=== PATIENT | male | born 1950 | race Caucasian/White ===

== ENCOUNTER 2017-10-05 06:02 | Day surgery (SDC) | payer MEDICARE, BC ==
[2017-10-05] MEDS ORDERED: Dextrose 5%-Lactated Ringers 1,000 ML IV SCH (06:30)
[2017-10-05] MEDS ORDERED: Propofol 200 MG/20 ML SDV ONE (07:08)
[2017-10-05] MEDS ORDERED: fentaNYL 100 MCG/2 ML SDV ONE (07:08)
[2017-10-05] MEDS ORDERED: Midazolam 1 MG/ML 2 ML SDV ONE (07:08)
[2017-10-05 10:20] VITALS: BP 98/46
--- NOTE | 2017-10-06 16:50 | OR ---
DATE OF PROCEDURE: 10/05/2017 PREOPERATIVE DIAGNOSIS: History of colonic polyps. POSTOPERATIVE DIAGNOSIS: Single recurrent polyp in the sigmoid colon (40 cm from the dentate line). OPERATIVE PROCEDURE: Flexible colonoscopy with polypectomy by snare technique. ANESTHESIA: IV sedation. INDICATION FOR PROCEDURE: This is a 67-year-old presenting following previous colonoscopy and polypectomies for adenomatous polyps. The plan is to proceed with flexible colonoscopy with biopsies and/or polypectomy as indicated. Potential risks including bleeding and perforation were discussed, and the patient wishes to proceed. DESCRIPTION OF PROCEDURE: The patient was taken to the operating room and placed in the left lateral decubitus position. IV sedation was administered. Initial digital rectal exam was performed and it was unremarkable. Colonoscope was then passed into the rectum with retroflexion revealing uncomplicated hemorrhoidal columns. The scope was eventually passed to level of the cecum. The prep was generally quite good. The patient had relatively short functioning of the small bowel, so the areas with fair bit of liquid green stool, most of this could be evacuated, but this certainly would impair visualization of small areas of the mucosal surface. The only abnormality seen on today's exam was a single polyp which appeared to be consistent with an adenomatous polyp at 40 cm from the dentate line. This was roughly a centimeter in size and was excised by means of cautery snare technique. The entire polyp appeared to be removed from the base of the polypectomy, had no bleeding after the polypectomy had been completed. The polyp was then placed into a retrieval bag, the scope was then withdrawn, and the procedure concluded. There were no evident complications and the patient was taken to the recovery room in satisfactory condition. Recommendation in this case would be to repeat the colonoscopy in 2 years, given the polypectomy identified today. Cleve Osullivan MD /[id number]
== END 2017-10-05 09:20 | disposition home or self-care (01) ==
LOC: JP.SDS 06:02
PROVIDERS: ATTEND Surgery
DX: Z12.11 Encounter for screening for malignant neoplasm of colon (principal); D12.6 Benign neoplasm of colon, unspecified; E11.22 Type 2 diabetes mellitus with diabetic chronic kidney disease; I12.9 Hypertensive chronic kidney disease with stage 1 through stage 4 chronic kidney disease, or unspecified chronic kidney disease; N18.9 Chronic kidney disease, unspecified; Z86.010 Personal history of colon polyps; Z88.0 Allergy status to penicillin; Z88.2 Allergy status to sulfonamides; Z88.8 Allergy status to other drugs, medicaments and biological substances
CPT/HCPCS: 45385; 88305; J2250; J2704; J3010; J7042

== ENCOUNTER 2018-03-21 07:40 | Day surgery (SDC) | payer MEDICARE, BC ==
[2018-03-21] MEDS ORDERED: Lactated Ringers 1,000 ML IV SCH (08:30)
[2018-03-21] MEDS ORDERED: Cyanocobalamin (Vitamin B12) 1,000 MCG/ML SDV IM SCH (08:30)
[2018-03-21] MEDS ORDERED: Glycopyrrolate 0.2 MG/ML 2 ML SDV IVPUSH ONE (09:00)
[2018-03-21] MEDS ORDERED: fentaNYL 100 MCG/2 ML SDV ONE (09:25)
[2018-03-21] MEDS ORDERED: Propofol 200 MG/20 ML SDV ONE (09:25)
[2018-03-21] MEDS ORDERED: MVI, Adult with Vitamin K 10 ML, Thiamine 200 MG, Chromium/Copper/Mang/Selen/Zn 1 ML in... IV ONE ×4 (09:45)
[2018-03-21 11:39] VITALS: BP 104/55
--- NOTE | 2018-03-30 12:12 | OR ---
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 POSTOPERATIVE DIAGNOSIS: Normal upper GI endoscopic examination status post Fatou-en-Y gastric bypass. OPERATIVE PROCEDURES: Upper GI endoscopy with gastric pouch biopsies for CLOtest. ANESTHESIA: IV sedation. INDICATION FOR PROCEDURE: A 67-year-old who recently experienced quite a bit in the way of weight loss and was noted recently to have marked hyperkalemia. This has been replaced, and he is now actually feeling quite a bit better and improving his oral intake substantially. A CT scan, however, was obtained, which suggested possible gastrogastric fistula. The patient is to undergo an upper GI endoscopy for evaluation of that possibility. Potential risks of the procedure including bleeding and perforation were discussed, and the patient wishes to proceed. DESCRIPTION OF PROCEDURE: The patient was taken to the operative room and placed in a left lateral decubitus position. IV sedation was administered, after which the upper GI endoscope was passed orally through the length of the esophagus and into the gastric pouch, and from there through the gastrojejunostomy, roughly 20 cm into the Fatou limb. Overall, the findings were entirely normal. There were no areas of significant inflammation or stricturing along the course of the gastric bypass anatomy and careful examination of the gastric pouch in the area around the gastrojejunostomy proximal to Fatou limb showed no evidence of fistula formation. The scope was then withdrawn into the pouch and biopsy obtained from there for H. pylori to establish the patient's H. pylori status. Minimal bleeding from the biopsy site was seen, and the procedure then concluded. At this point, the patient appears to be eating quite a bit better, and he will be set up to see Rosana Fam next weekend for followup to confirm that things are continuing to improve and recheck on electrolytes at that time. Cleve Osullivan MD /[id number]
== END 2018-03-21 11:18 | disposition home or self-care (01) ==
LOC: JP.SDS 07:40
PROVIDERS: ATTEND Surgery
DX: R93.5 Abnormal findings on diagnostic imaging of other abdominal regions, including retroperitoneum (principal); E11.22 Type 2 diabetes mellitus with diabetic chronic kidney disease; I12.9 Hypertensive chronic kidney disease with stage 1 through stage 4 chronic kidney disease, or unspecified chronic kidney disease; N18.9 Chronic kidney disease, unspecified; E03.9 Hypothyroidism, unspecified; Z98.84 Bariatric surgery status
CPT/HCPCS: 36415; 43239; 80048; 83735; 84100; 85610; 87081; J2704; J3010; J7120; J3490

== ENCOUNTER 2019-10-10 08:04 | Day surgery (SDC) | payer MEDICARE, BC ==
[~2019-10-10 08:04] MED LIST: Midazolam 1 MG/ML 2 ML SDV ONE; Propofol 200 MG/20 ML SDV ONE; fentaNYL 100 MCG/2 ML SDV ONE
[2019-10-10] MEDS ORDERED: Sodium Chloride 0.9% 1,000 ML IV SCH (09:15)
[2019-10-10 13:11] VITALS: BP 117/77
[2019-10-10 13:12] VITALS: PULSE 79
--- NOTE | 2019-10-11 10:47 | OR ---
DATE OF PROCEDURE: 10/10/2019 SURGEON: Orion Maya MD PROCEDURE: Colonoscopy. PREOPERATIVE DIAGNOSIS: Screening colonoscopy. POSTOPERATIVE DIAGNOSIS: Screening colonoscopy. RISKS: Risks, benefits, alternatives, and limitations including, but not limited to infection, bleeding, and perforation were explained to the patient, who wished to proceed. PROCEDURE IN DETAIL: The patient was placed in left lateral decubitus position. Digital rectal exam was performed without abnormality. Scope was introduced and advanced atraumatically to the ileocecal valve. A photo was taken. The scope was brought back through the ascending, transverse, descending colon, and retroflexed. No evidence of old or new blood. No masses. No polyps. No abnormalities on retroflexion. The patient tolerated the procedure well. Orion Maya MD /[id number]
== END 2019-10-10 13:55 | disposition home or self-care (01) ==
LOC: JP.SDS 08:04
PROVIDERS: ATTEND Surgery
DX: Z12.11 Encounter for screening for malignant neoplasm of colon (principal); I12.9 Hypertensive chronic kidney disease with stage 1 through stage 4 chronic kidney disease, or unspecified chronic kidney disease; N18.9 Chronic kidney disease, unspecified
CPT/HCPCS: G0121; J2250; J2704; J3010; J7030

== ENCOUNTER 2020-03-04 04:55 | Day surgery (SDC) | payer MEDICARE, BC ==
[2020-03-04] MEDS ORDERED: Cyanocobalamin (Vitamin B12) 1,000 MCG/ML SDV IM ONE (06:30)
[2020-03-04] MEDS ORDERED: Lactated Ringers 1,000 ML IV ONE (06:30)
[2020-03-04] MEDS ORDERED: Propofol 200 MG/20 ML SDV ONE (07:09)
[2020-03-04] MEDS ORDERED: fentaNYL 100 MCG/2 ML SDV ONE (07:09)
[2020-03-04] MEDS ORDERED: Glycopyrrolate 0.2 MG/ML 2 ML SDV IVPUSH ONE (07:15)
[2020-03-04] MEDS ORDERED: MVI, Adult with Vitamin K 10 ML, Thiamine 200 MG, Chromium/Copper/Mang/Selen/Zn 1 ML in... IV ONE ×4 (08:00)
[2020-03-04 08:18] VITALS: PULSE 76
[2020-03-04 08:46] VITALS: BP 108/70
--- NOTE | 2020-03-06 18:25 | OR ---
DATE OF PROCEDURE: 03/04/2020 SURGEON: Cleve Osullivan MD PREOPERATIVE DIAGNOSIS: Dysphagia referable to distal esophagus and/or gastrojejunostomy. 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 OPERATIVE PROCEDURE: Upper GI endoscopy with dilation of gastrojejunostomy ([id number]). ANESTHESIA: IV sedation. INDICATION FOR PROCEDURE: A 69-year-old status post previous Fatou-en-Y gastric bypass, presenting for some increasing dysphagia. The plan is to proceed with upper GI endoscopy with biopsies and/or dilation as indicated. Potential risks including bleeding and perforation were discussed, and the patient wishes to proceed. DETAILS OF PROCEDURE: The patient was taken to the operating room and placed in a left lateral decubitus position. IV sedation was administered, after which the upper GI endoscope was passed orally through the length of the esophagus and into the area of the gastrojejunostomy. The patient was noted to have quite a bit of bezoar type material within the distal esophagus and gastric pouch area. Eventually, the scope was able to be passed around that area, and the patient was noted to have a quite tight stricture at the gastrojejunostomy. A Bard gastrointestinal catheter was centered across the anastomosis and inflated to a 45-Colombian size. This was held in position for 1 minute, after which balloon catheter was deflated and withdrawn. Good dilation was confirmed at this point and the procedure then concluded. The patient will be instructed to stay on a liquid diet for 5 days, then begin an anti- bezoar diet, and then proceed with a repeat upper endoscopy dilation on April 02 to maintain adequate luminal diameter as well as rule out any persistence of the bezoar. Cleve Osullivan MD /[id number]
== END 2020-03-04 10:05 | disposition home or self-care (01) ==
LOC: JP.SDS 04:55
PROVIDERS: ATTEND Surgery
DX: K94.29 Other complications of gastrostomy (principal); T18.198A Other foreign object in esophagus causing other injury, initial encounter; E03.9 Hypothyroidism, unspecified; I12.9 Hypertensive chronic kidney disease with stage 1 through stage 4 chronic kidney disease, or unspecified chronic kidney disease; N18.9 Chronic kidney disease, unspecified; Z88.0 Allergy status to penicillin; Z98.84 Bariatric surgery status; Z88.2 Allergy status to sulfonamides; Z88.8 Allergy status to other drugs, medicaments and biological substances; Z91.040 Latex allergy status
CPT/HCPCS: 43245; J2704; J3010; J3411; J3420; J3490; J7120

== ENCOUNTER 2020-04-02 05:15 | Day surgery (SDC) | payer MEDICARE, BC ==
[2020-04-02] MEDS ORDERED: Lactated Ringers 1,000 ML IV ONE (06:00)
[2020-04-02] MEDS ORDERED: Glycopyrrolate 0.2 MG/ML 2 ML SDV IVPUSH ONE (06:00)
[2020-04-02] MEDS ORDERED: Cyanocobalamin (Vitamin B12) 1,000 MCG/ML SDV IM ONE (06:00)
[2020-04-02] MEDS ORDERED: MVI, Adult with Vitamin K 10 ML, Thiamine 200 MG, Chromium/Copper/Mang/Selen/Zn 1 ML in... IV ONE ×4 (07:00)
[2020-04-02] MEDS ORDERED: Midazolam 1 MG/ML 2 ML SDV ONE (07:01)
[2020-04-02] MEDS ORDERED: fentaNYL 100 MCG/2 ML SDV ONE (07:01)
[2020-04-02] MEDS ORDERED: Propofol 200 MG/20 ML SDV ONE (07:01)
[2020-04-02 09:28] VITALS: BP 102/60; PULSE 98
--- NOTE | 2020-04-08 14:04 | OR ---
DATE OF PROCEDURE: 04/02/2020 SURGEON: Cleve Osullivan MD PREOPERATIVE DIAGNOSIS: Recent severe esophagitis and stricturing at gastrojejunostomy. POSTOPERATIVE DIAGNOSIS: Esophagitis with resolution of stricture at gastrojejunostomy. OPERATIVE PROCEDURE: Upper GI endoscopy. ANESTHESIA: IV sedation. INDICATIONS FOR PROCEDURE: A 69-year-old, roughly a month status post upper endoscopy, at which time, the patient was noted to have stricturing at the gastrojejunostomy. This could be due to a large extent related to marked esophagitis at the esophagogastric junction and was associated with a large amount of retained food within the distal esophagus. The patient was started on b.i.d. omeprazole 40 mg and Carafate. Recently, he has felt quite a bit better. He has been on an anti-bezoar diet during the interim. Plan is to proceed with upper GI endoscopy with biopsies and/or dilation as indicated. Potential risks including bleeding and perforation were discussed, and the patient wishes to proceed. DETAILS OF PROCEDURE: The patient was taken to the operating room and placed in a left lateral decubitus position. After IV sedation was administered, the upper GI endoscope was passed orally through the length of the esophagus into the gastric pouch, from there through the gastrojejunostomy roughly 20 cm into the Fatou limb. Findings included normal hypopharynx, larynx, upper esophageal sphincter, esophageal body. At the EG junction, previously noted esophagitis was now cleared and there was no significant narrowing of the gastrojejunostomy. There was still a small amount of old retained semi-solid food within the distal esophagus. This was likely associated with some element of esophageal dysmotility, but without significant inflammation at this point. Scope was then withdrawn, the above findings were reconfirmed, and the procedure was then concluded. At this point, we will have the patient remain on an anti-bezoar diet long-term given what appears to be some degree of esophageal dysmotility. We will try to de-escelate the medical management with stopping the Carafate at this point, and if he is doing okay after being off Carafate for 2 weeks, he will be instructed to try to decrease the omeprazole to 40 mg once daily and then restart a higher dose omeprazole if symptoms recurring. Otherwise, follow up with Rosana Fam at [facility] in 6 weeks. Cleve Osullivan MD /[id number]
== END 2020-04-02 09:32 | disposition home or self-care (01) ==
LOC: JP.SDS 05:15
PROVIDERS: ATTEND Surgery
DX: K20.9 Esophagitis, unspecified (principal); K94.29 Other complications of gastrostomy; Z11.59 Encounter for screening for other viral diseases
CPT/HCPCS: 43235; J2250; J2704; J3010; J3411; J3420; J3490; J7120; U0002

== ENCOUNTER 2021-10-02 12:30 | Emergency (ER) | payer MEDICARE, BC ==
[2021-10-02] MEDS ORDERED: Sodium Chloride 0.9% 1,000 ML IV SCH ×2 (16:15→18:30)
[2021-10-02] MEDS ORDERED: Metoprolol Succinate 50 MG Tab.ER PO ONE (23:12)
[2021-10-02] MEDS ORDERED: Sucralfate 1 GM Tab PO ONE (23:12)
[2021-10-02] MEDS ORDERED: Pantoprazole 40 MG Tab.CR PO SCH (23:15)
[2021-10-03] MEDS ORDERED: Sodium Chloride 0.9% 1,000 ML IV SCH (06:45)
[2021-10-03 10:17] VITALS: BP 118/79; PULSE 69
== END 2021-10-03 10:19 | disposition home or self-care (01) ==
LOC: JP.ED 12:30
DX: R04.0 Epistaxis (principal); E86.0 Dehydration; I12.9 Hypertensive chronic kidney disease with stage 1 through stage 4 chronic kidney disease, or unspecified chronic kidney disease; E11.22 Type 2 diabetes mellitus with diabetic chronic kidney disease; N18.9 Chronic kidney disease, unspecified; N17.9 Acute kidney failure, unspecified; I48.91 Unspecified atrial fibrillation; E78.00 Pure hypercholesterolemia, unspecified; Z79.01 Long term (current) use of anticoagulants; Z88.8 Allergy status to other drugs, medicaments and biological substances; Z88.0 Allergy status to penicillin; Z88.2 Allergy status to sulfonamides; Z79.899 Other long term (current) drug therapy
CPT/HCPCS: 30901; 30903; 36415; 80048; 80053; 81001; 85025; 85610; 87086; 96372; 99283; 99283-25; A9270-GY; J3430; J7030

== ENCOUNTER 2021-10-13 11:45 | Emergency (ER) | payer MEDICARE, BC ==
[2021-10-13] MEDS ORDERED: Sodium Chloride 0.9% 500 ML IV ONE (14:11)
[2021-10-13 16:41] VITALS: BP 101/57; PULSE 100
== END 2021-10-13 17:20 | disposition home or self-care (01) ==
LOC: JP.ED 11:45
DX: N17.9 Acute kidney failure, unspecified (principal); I12.9 Hypertensive chronic kidney disease with stage 1 through stage 4 chronic kidney disease, or unspecified chronic kidney disease; E11.22 Type 2 diabetes mellitus with diabetic chronic kidney disease; N18.9 Chronic kidney disease, unspecified; E78.00 Pure hypercholesterolemia, unspecified; Z88.0 Allergy status to penicillin; Z88.5 Allergy status to narcotic agent; Z88.8 Allergy status to other drugs, medicaments and biological substances; Z79.01 Long term (current) use of anticoagulants; Z79.899 Other long term (current) drug therapy
CPT/HCPCS: 76770; 81001; 99284; J7040